=== PATIENT | female | born 1970 | race Caucasian/White ===

== ENCOUNTER 2017-06-26 13:26 | Emergency (ER) | payer BC ==
[~2017-06-26] VITALS: Ht 157.5 cm; Wt 90.7 kg
[2017-06-26] MEDS ORDERED: PAROXETINE HCL10 MG PO (13:35)
--- NOTE | 2017-06-26 15:01 | EKG ---
[facility] [address] [facility] [place], [place] [address] Signed Normal sinus rhythm Normal ECG No previous ECGs available Confirmed by CHIDI HEATON MD ([id number]) on 06/26/2017 3:01:42 PM Electronically Signed By: CHIDI HEATON MD 06/26/17 1501 PATIENT NAME: LALO BRITT NEERU Electrocardiogram DATE OF : [birth year] PHYSICIAN: CHIDI HEATON MD REPORT #: [id number] REPORT IS CONFIDENTIAL AND NOT TO BE RELEASED WITHOUT AUTHORIZATION
[2017-09-10] MEDS ORDERED: VITAMIN B122500 MCG PO (16:52)
[2017-09-10] MEDS ORDERED: VITAMIN D32000 UNI1 PO (16:52)
== END 2017-06-26 17:15 | disposition home or self-care (01) ==
LOC: ED 13:26
DX: R07.89 Other chest pain (principal); Z88.0 Allergy status to penicillin; Z88.8 Allergy status to other drugs, medicaments and biological substances; Z79.899 Other long term (current) drug therapy
CPT/HCPCS: 36415; 71046; 80053; 84484; 85025; 93005; 93010; 99284

== ENCOUNTER 2017-09-12 05:45 | Day surgery (SDC) | payer BC ==
[~2017-09-12] VITALS: Ht 157.5 cm; Wt 96.6 kg
[~2017-09-12 05:45] MED LIST: PAROXETINE HCL10 MG PO; VITAMIN B122500 MCG PO; VITAMIN D32000 UNI1 PO
--- NOTE | 2017-09-12 10:19 | NUR ---
09/12/17 1019 Yissel Murrell PT C/O NEEDING TO VOID; CHRISTIANSON IS DRAINING; PAIN MED GIVEN
--- NOTE | 2017-09-12 10:41 | NUR ---
PT ARRIVES TO DS RM 5 WITH EYES CLOSED AND RESPIRATIONS UNLABORED. PT QUIETLY SNORING. PT PROVIDED ICED WATER AND CRACKERS. PT STATES THE URGE TO VOID AND IS MADE AWARE OF CHRISTIANSON CATHETER IN PLACE. CALL LIGHT AT PT LEFT SIDE. SCD'S IN PLACE.
--- NOTE | 2017-09-12 11:04 | NUR ---
SPOKE WITH DR SANTOS ABOUT DC'ING PT CHRISTIANSON CATHETER. VERBAL ORDER GIVEN AND DR SANTOS TO ENTER ORDERS ON COMPUTER. 8.5 MLS NS REMOVED FROM CATHETER BALLOON. PT TOLERATES CHRISTIANSON DC WELL AND IMMEDIATELY ASKS TO AMBULATE TO BR. RN ASSIST TO BR, PT AMBULATES WELL BUT STATES SHE FEELS "A LITTLE NAUSEATED." PT INSTRUCTED TO USE CALL LIGHT IF HELP IS NEEDED ONCE IN BR. BED LINENS CHANGED AND WARM BLANKETS PROVIDED. FAMILY IN ROOM AT BEDSIDE.
--- NOTE | 2017-09-12 11:16 | NUR ---
PT BACK IN BED WITH CALL LIGHT AT LEFT SIDE. PT VOIDS APPROX 50 MLS OF YELLOW URINE WITH BLOOD PRESENT. PT FEELS LIKE SHE NEEDS TO HAVE A BM AND HAS "PRESSURE." PT STATES SHE IS STILL NAUSEATED.
--- NOTE | 2017-09-12 11:37 | NUR ---
PT STATES SHE IS COLD. FATMATA HUGGER PLACED ON WARM. PT RESTING WITH EYES CLOSED, RR EVEN AND UNLABORED SATS 100% ON RA. BP TAKEN AGAIN 160/74. BLADDER SCANNED 78 MLS.
--- NOTE | 2017-09-12 12:44 | NUR ---
PT UP TO BR WITH RN ASSIST. PT ABLE TO VOID 150 MLS YELLOW CONCENTRATED URINE. PT STATING SHE "NEEDS TO HAVE BM." PT PROVIDED SOUP AND WARM BLANKET. FAMILY AT BEDSIDE. CALL LIGHT AT LEFT SIDE.
--- NOTE | 2017-09-12 13:49 | NUR ---
[id number]: PT TOLERATES SOUP WELL. PT AMBULATES HALLWAY WITH RN ASSIST. PT TO BR, ABLE TO VOID 100 MLS CONCENTRATED YELLOW URINE. PT RESTING IN BED WITH EYES CLOSED, EVEN UNBLABORED RR, QUIETLY SNORING. SISTER SITTING AT BEDSIDE WATCHING TV. CALL LIGHT REAMINS AT PT LEFT SIDE.
--- NOTE | 2017-09-12 14:00 | NUR ---
DR. SANTOS IN TO SEE PT. PT AND MD ARE IN AGREEANCE SHE WILL BE DC'D FROM DS UNIT WHEN PT FEELS READY.
--- NOTE | 2017-09-12 14:51 | NUR ---
PT RESTING IN BED-ALERT, ORIENTED AND SUPPORTED BY FAMILY. SHE SEEMED A LITTLE ANXIOUS, BUT SEEMED TO EASE A BIT I EXPLAINED PLAN TODAY. PT REQUESTED PRAYER, WILL FOLLOW NEEDED
[2017-09-12] MEDS ORDERED: NORCO 5-325 TA1 EACH PO (15:06)
[2017-09-12] MEDS ORDERED: IBUPROFEN800 MG PO (15:06)
--- NOTE | 2017-09-12 15:28 | NUR ---
PT STATES SHE HAS SOME PAIN AND WOULD LIKE ORAL PAIN MEDICATION PRIOR TO DC. PT PROVIDED PUDDING AND CRACKERS WITH PERCOCET MEDICATION. PT BP ELEVATED AT 167/78. MANUAL BP TAKEN ON LEFT ARM, 162/80.
--- NOTE | 2017-09-12 15:57 | NUR ---
DC INSTRUCTIONS GIVEN IN PRESENCE OF PT AND PT SISTERPAIGE. PT VERBALIZES AN UNDERSTANDING OF DC INSTRUCTIONS AND HAD NO QUESTIONS. PT DC VIA WHEELCHIAR FROM DS RM 5 WITH TATY FISHMAN AND SISTERPAIGE.
--- NOTE | 2017-10-08 10:49 | OR ---
[facility] [address] [place], [place] [address] Signed DATE OF OPERATION: 09/12/2017 SURGEON: Regulo Paez DO PREOPERATIVE DIAGNOSES: 1. Abnormal uterine bleeding. 2. Menstrual migraines. 3. Obesity. POSTOPERATIVE DIAGNOSES: 1. Abnormal uterine bleeding. 2. Menstrual migraines. 3. Obesity. 4. Fibroid uterus. PROCEDURES PERFORMED: 1. Total laparoscopic hysterectomy. 2. Bilateral salpingectomy. 3. Cystoscopy. MARKETING RESEARCH INTERN: Dileep Wynn MD ANESTHESIA: General. ESTIMATED BLOOD LOSS: 50 mL. SPECIMENS: Uterus, tubes, cervix and Filshie clip from the broad ligament on the left. FINDINGS: Normal external genitalia with normal clitoris, urethral meatus, bilateral [place]'s, and Bartholin's. Her cervix is normal appearing. The uterus sounded to 8 cm. On laparoscopy, normal bilateral ovaries. The tubes bilaterally are status post tubal ligation and in the posterior leaf of the left broad ligament, there is a Filshie clip noted. At the end of procedure, the vaginal cuff was well supported hemostatic. In the right upper quadrant, she has significant scarring where she had an open cholecystectomy in the past. The rest of the abdomen is free of adhesions. On cystoscopy, normal Electronically Signed By: REGULO PAEZ DO 10/08/17 1049 PATIENT NAME: LALO IGLESIAS NEERU OPERATIVE REPORT DATE OF : 68 REPORT #: [id number] PHYSICIAN: REGULO PAEZ DO PCP: MISYS COSBY REPORT IS CONFIDENTIAL AND NOT TO BE RELEASED WITHOUT AUTHORIZATION [facility] [address] [place], [place] [address] Signed bladder with bilateral ureteral jets noted. COMPLICATIONS: None. INDICATIONS: Ms. Iglesias is a pleasant 47-year-old white female with a history of abnormal uterine bleeding and menstrual migraines. She has failed conservative management and requesting definitive treatment with total laparoscopic hysterectomy. Risks, benefits, alternatives were discussed in detail with the patient. The patient understands and wishes to proceed with the procedure. TECHNIQUE: The patient was taken to the operating room. A time-out was performed to confirm correct patient and correct procedure. General anesthesia was adequately established. The patient was prepped and draped in the dorsal lithotomy position with her feet in Yellofin stirrups. ICPs were on and running, and the patient received Ancef 2 g per SCIP protocol. No heparin was indicated. A weighted speculum was placed in the vagina and the anterior lip of the cervix was grasped with a single-tooth tenaculum. The uterus was sounded to a depth of 8 cm and the cervix was serially dilated using Hegar dilators. A VCare uterine manipulator was placed. A Baumann catheter was inserted. The surgeon's gloves were changed and attention was turned to the abdomen. The base of the umbilicus was infiltrated with 0.25% Marcaine with epinephrine. A 5 mm incision was made at the base of the umbilicus and a 5 mm trocar was placed under direct visualization without complication. Survey of the abdomen and pelvis was performed with the above findings noted. A second 5 mm trocar was placed in the left lower quadrant and an 8 mm expanding port was placed in the right lower quadrant, both under direct visualization without complication. The laparoscope was placed through the left lower quadrant port and no bowel injury was noted at the umbilicus. The left fallopian tube was grasped at the fimbriated end, elevated and the tube dissected along the mesial salpinx using the LigaSure bipolar device. The entire tube was removed and dissected at the corneum and removed through the 8 mm trocar. The utero-ovarian ligament on the left was fulgurated and divided with good hemostasis. The round ligament was fulgurated and divided using the LigaSure device as well. The anterior leaf of the broad ligament was then divided using LigaSure down just superior to the cervical cup. The bladder was pushed down well below the cup and attention was turned to the posterior leaf of the broad ligament. This was divided towards the uterosacral ligament after the ureter was identified and found to be well away from the space. The left uterine artery was identified, fulgurated, and divided with good hemostasis. The process was repeated on the right side with the fimbriated end of the fallopian tube, elevated, divided along the mesosalpinx and the fallopian tube removed. Utero-ovarian ligament was fulgurated and divided with good hemostasis. The round ligament was fulgurated and divided. The Electronically Signed By: REGULO PAEZ DO 10/08/17 1049 PATIENT NAME: LALO IGLESIAS NEERU OPERATIVE REPORT DATE OF : 68 REPORT #: [id number] PHYSICIAN: REGULO PAEZ DO PCP: MISSY COSBY REPORT IS CONFIDENTIAL AND NOT TO BE RELEASED WITHOUT AUTHORIZATION [facility] [address] [place] [id number] Signed leaves of the broad ligament were divided and dissection was completed to the anterior dissection and the bladder completely dissected well below the vaginal cuff. The right uterine artery was identified, fulgurated, and divided with good hemostasis. The Sonicision device was then used to perform colpotomy starting at the 6 o'clock position and carried circumferentially around until the cervix had been divided from the vagina. The uterus and cervix were then delivered through the vagina. There previously had been noted at the beginning of the case, a small fundal fibroid, of note. The cervix and uterus were sent to pathology for further evaluation. Lap sponge was placed in a surgical glove and inserted to the vagina to maintain pneumoperitoneum. The gloves were changed and attention was turned to the colpotomy closure. The uterosacral ligament was grasped on the right, elevated, and a V-Loc suture was placed through the uterosacral ligament, incorporating the vaginal epithelium. The colpotomy was then closed in running nonlocked sutures of the V-Loc suture to the left uterosacral ligament and then the suture was run back towards the midline for several bites with good hemostasis and cuff support. The pelvis was irrigated and found to be hemostatic. The attention was then turned to the left broad ligament where the previously noted Filshie clip had been retroperitonealized. This was grasped with a wavy grasper, elevated and the underlying peritoneum was gently dissected off using surgical mark. The Filshie clip was dissected easily and was removed through the 8 mm trocar. Good hemostasis was appreciated and the pelvis was again irrigated. Pneumoperitoneum was slowly reduced and good hemostasis was appreciated and the trocars were removed. Trocar sites were repaired using 4-0 Vicryl in a subcuticular stitch. Attention was then turned to cystoscopy. The bladder was instilled with approximately 250 mL of normal saline. A cystoscope was placed into the urethral meatus and advanced under direct visualization to the bladder. Normal bladder dome was noted and bilateral ureteral jets were noted. The bladder was drained. Baumann catheter was reinserted and the patient was taken to the PACU in good and stable condition. Sponge, needle, and instrument count were correct x2 at the end of the procedure. Dr. Wynn was present and participated in all portions of procedure. Regulo Paez DO JDW/MODL /[id number] Electronically Signed By: REGULO PAEZ DO 10/08/17 1049 PATIENT NAME: LALO IGLESIAS NEERU OPERATIVE REPORT DATE OF : [birth year] REPORT #: [id number] PHYSICIAN: REGULO PAEZ DO PCP: MISSY COSBY REPORT IS CONFIDENTIAL AND NOT TO BE RELEASED WITHOUT AUTHORIZATION [facility] [address] [place] [id number] Signed Copies: ~ Electronically Signed By: REGULO PAEZ DO 10/08/17 1049 PATIENT NAME: LALO IGLESIAS OPERATIVE REPORT DATE OF : 68 REPORT #: [id number] PHYSICIAN: REGULO PAEZ DO PCP: MISSY COSBY REPORT IS CONFIDENTIAL AND NOT TO BE RELEASED WITHOUT AUTHORIZATION
== END 2017-09-12 15:50 | disposition home or self-care (01) ==
LOC: OPS 05:45 → DS 05:45 → OPS 06:45
PROVIDERS: Obstetrics & Gynecology
PROC: 0UT94ZZ Resection of Uterus, Percutaneous Endoscopic Approach (ICD-10-PCS; principal; 2017-09-12 06:45)
PROC: 0UT74ZZ Resection of Bilateral Fallopian Tubes, Percutaneous Endoscopic Approach (ICD-10-PCS; 2017-09-12 06:45)
DX: D25.1 Intramural leiomyoma of uterus (principal); D25.2 Subserosal leiomyoma of uterus; N87.9 Dysplasia of cervix uteri, unspecified; E66.9 Obesity, unspecified; G43.829 Menstrual migraine, not intractable, without status migrainosus; G47.33 Obstructive sleep apnea (adult) (pediatric); F32.9 Major depressive disorder, single episode, unspecified; Z79.899 Other long term (current) drug therapy; Z68.38 Body mass index [BMI] 38.0-38.9, adult
CPT/HCPCS: 00944; 36415; 86850; 86900; 86901; J0330; J0690; J1100; J1885; J2250; J2405; J2704; J2765; J3010; J7120

== ENCOUNTER 2019-10-20 10:35 | Day surgery (SDC) | payer BC ==
[~2019-10-20] VITALS: Ht 157.5 cm; Wt 90.7 kg
--- NOTE | ~2019-10-20 | OR ---
[facility] [address] [place], [place] [address] Draft DATE OF OPERATION: 10/20/2019 SURGEON: Enrique Betancourt MD PREOPERATIVE DIAGNOSES: 1. Colon screening. 2. Family history of colon cancer (mother). POSTOPERATIVE DIAGNOSIS: Normal colon to cecum with normal ileum. PROCEDURE: Total colonoscopy to cecum with intubation of ileum. ANESTHESIA: Intravenous sedation, fentanyl 100 mcg and Versed 5 mg. INDICATIONS: This 49-year-old white woman is a patient of VALENTINE Weir. She is referred for screening colonoscopy. She has no symptoms of bleeding, diarrhea, or constipation, but does have family history of colon cancer in her mother. She is admitted at this time to undergo colonoscopy and understands the risks of bleeding, infection, and perforation. FINDINGS: The prep was excellent. Complete colonoscopy was undertaken to the cecum with ease identification of the ileocecal valve and appendix. The ileum was intubated without problem as well, and it was also normal. There were no signs of polyps, diverticular formation, colitis, or cancer. DESCRIPTION OF PROCEDURE: The patient was brought to the endoscopy suite and placed in lateral decubitus position, given intravenous sedation to the point of slurred speech and nystagmus. Digital rectal examination was normal. An Olympus video colonoscope was passed into the rectum and manipulated throughout the colon, ultimately intubating the cecum. The ileocecal valve and appendiceal orifice were normal. With manipulation, ileum was able to be intubated, identifying well the ileum mucosa which was normal. The scope was withdrawn and examination of the ileocecal valve and appendiceal orifice once again noted. Careful withdrawal of scope and withdrawal showed no sign of polyps, diverticular formation, colitis, or cancer. PATIENT NAME: LALO BRITT OPERATIVE REPORT DATE OF : [birth year] REPORT #: [id number] PHYSICIAN: ENRIQUE BETANCOURT MD PCP: MISSY HOWELL PA-C REPORT IS CONFIDENTIAL AND NOT TO BE RELEASED WITHOUT AUTHORIZATION [facility] [address] [place], [place] [address] Draft Retroflexed view was normal as well. The scope was removed. The patient taken to the recovery room in good condition. CONCLUDING DIAGNOSIS: Normal colon and ileum. PLAN: Recommend repeat colonoscopy in 5 years given her family history of colon cancer in her mother, sooner if clinically indicated. She will return to the ongoing care of Missy Howell otherwise. MD MATHIEU Grayson/MODL /[id number] Copies: ~ PATIENT NAME: LALO BRITT NEERU OPERATIVE REPORT DATE OF : [birth year] REPORT #: [id number] PHYSICIAN: ENRIQUE BETANCOURT MD PCP: MISSY HOWELL PA-C REPORT IS CONFIDENTIAL AND NOT TO BE RELEASED WITHOUT AUTHORIZATION
[~2019-10-20 10:35] MED LIST changes: +IBUPROFEN800 MG PO; +NORCO 5-325 TA1 EACH PO
--- NOTE | 2019-10-20 12:33 | NUR ---
10/20/19 1233 Sheets,Mariela 1228 PT ARRIVED TO PACU ON 2L VIA MASK, RESP EVEN AND UNOLABORED. PT DENIES PAIN AND NAUSEA. PT PASSING GAS AND ENCOURAGED TO DO SO. VSS. 1233 PT ASLEEP AND SNORING NOTED.
== END 2019-10-20 13:20 | disposition home or self-care (01) ==
LOC: OPS 10:35 → DS 11:00 → OPS 12:00
PROVIDERS: Surgery
PROC: 0DJD8ZZ Inspection of Lower Intestinal Tract, Via Natural or Artificial Opening Endoscopic (ICD-10-PCS; principal; 2019-10-20 12:00)
DX: Z12.11 Encounter for screening for malignant neoplasm of colon (principal); Z80.0 Family history of malignant neoplasm of digestive organs; Z88.0 Allergy status to penicillin; Z88.8 Allergy status to other drugs, medicaments and biological substances; Z90.49 Acquired absence of other specified parts of digestive tract
CPT/HCPCS: 99153; G0500; J2250; J3010; J7121

== ENCOUNTER 2021-12-29 14:46 | Emergency (ER) | payer BC ==
[~2021-12-29] VITALS: Ht 157.5 cm; Wt 95.2 kg
--- NOTE | 2021-12-31 16:20 | EKG ---
[facility] [address] [facility] [place] [address] Signed Normal sinus rhythm Nonspecific ST and T wave abnormality Abnormal ECG When compared with ECG of 26-JUN-2017 13:29, Nonspecific T wave abnormality, worse in Inferior leads Nonspecific T wave abnormality now evident in Anterolateral leads Confirmed by LEN AMBROSIO MD ([id number]) on 12/31/2021 4:20:03 PM Electronically Signed By: LEN AMBROSIO MD 12/31/21 1620 PATIENT NAME: AIMEE BRITTIDI NEERU Electrocardiogram DATE OF : 68 PHYSICIAN: LEN AMBROSIO MD REPORT #: [id number] REPORT IS CONFIDENTIAL AND NOT TO BE RELEASED WITHOUT AUTHORIZATION
== END 2021-12-29 16:22 | disposition home or self-care (01) ==
LOC: ED 14:46
DX: K21.9 Gastro-esophageal reflux disease without esophagitis (principal); Z88.0 Allergy status to penicillin; Z88.8 Allergy status to other drugs, medicaments and biological substances
CPT/HCPCS: 36415; 71045; 80053; 84484; 85025; 93005; 93010; 99285-25

== ENCOUNTER 2024-03-08 15:23 | Emergency (ER) | payer OTHER, BC ==
[~2024-03-08] VITALS: Ht 157.5 cm; Wt 93.0 kg
[2024-03-08] MEDS ORDERED: MOUNJARO5 MG/0.5 M SQ (16:07)
[2024-03-08] MEDS ORDERED: PHENTERMINE HCL15 MG PO (16:07)
[2024-03-08] MEDS ORDERED: OXYCODONE/APAP 5/325 TAB PO ONE (16:15)
[2024-03-08 17:26] VITALS: BP 189/101
== END 2024-03-08 17:34 | disposition home or self-care (01) ==
LOC: ED 15:23
DX: M25.531 Pain in right wrist (principal); E11.9 Type 2 diabetes mellitus without complications; Z88.5 Allergy status to narcotic agent; Z88.0 Allergy status to penicillin; Z79.899 Other long term (current) drug therapy; W01.0XXA Fall on same level from slipping, tripping and stumbling without subsequent striking against object, initial encounter
CPT/HCPCS: 73110; 73130; 99283

== ENCOUNTER 2024-08-05 20:20 | Emergency (ER) | payer BC ==
[~2024-08-05] VITALS: Ht 157.5 cm; Wt 90.0 kg
[~2024-08-05 20:20] MED LIST changes: +MOUNJARO5 MG/0.5 M SQ; +PHENTERMINE HCL15 MG PO
[2024-08-05] MEDS ORDERED: LOSARTAN POTASS25 MG PO (21:06)
[2024-08-05] MEDS ORDERED: HYDROXYZINE HCL25 MG (21:07)
[2024-08-05 21:20] LABS: EOSINOPHILS 2.1 % (0-6); HEMOGLOBIN 14.5 g/dL (12.0-18.0); LYMPHOCYTES 34.3 % (24-44); MCH 30.7 (27-36); MCHC 34.6 g/dl (30-36); MCV 88.5 fl (81-99); MONOCYTES 4.7 % (0-12); NEUTROPHILS 57.9 % (39-80); PLATELET COUNT 340 K/uL (140-440); RBC 4.74 M/ul (4.3-5.7); RDW 13.1 (10.5-15.0)
[2024-08-05 21:27] LABS: BILIRUBIN, URINE NEGATIVE (negative); BLOOD/HGB, URINE NEGATIVE (Negative); KETONE, URINE NEGATIVE (Negative); LEUK ESTERASE, URINE NEGATIVE (negative); NITRITE, URINE NEGATIVE (negative)
[2024-08-05 21:31] LABS: ALBUMIN 4.3 g/dL (3.4-5.0); ALBUMIN/GLOBULIN RATIO 1.05 (1.1-2.4); ANION GAP 8.6 (7-21); BILIRUBIN, TOTAL 0.3 mg/dL (0.2-1.0); BUN/CREATININE RATIO 19.35 (6.0-28.6); CALCIUM 9.5 mg/dL (8.5-10.1); CREATININE, SERUM 0.93 mg/dL (0.55-1.02); POTASSIUM 3.6 mmol/L (3.5-5.1); PROTEIN, TOTAL 8.4 g/dL (6.4-8.2)
[2024-08-05] MEDS ORDERED: ENALAPRILAT DIHYDRATE 1.25 MG/ML VIAL IV ONE (22:00)
[2024-08-05] MEDS ORDERED: LORazepam 2 MG/ML VIAL IV ONE (22:30)
[2024-08-05] MEDS ORDERED: LOSARTAN POTASS50 MG PO (23:32)
[2024-08-05] MEDS ORDERED: LORazepam 1 MG HOME.PACK PO ONE (23:45)
[2024-08-05 23:51] VITALS: BP 148/72
--- NOTE | 2024-08-06 22:45 | EKG ---
[facility] [address] [place] [address] Signed Sinus rhythm with premature supraventricular complexes Moderate voltage criteria for LVH, may be normal variant ( R in aVL , Cecil product ) Nonspecific T wave abnormality Abnormal ECG When compared with ECG of 29-DEC-2021 14:47, premature supraventricular complexes are now present Confirmed by Sandor Gtz MD () on 08/06/2024 10:44:55 PM Electronically Signed By: SANDOR GTZ MD 08/06/24 2245 PATIENT NAME: LALO BRITT NEERU Electrocardiogram DATE OF : 68 PHYSICIAN: SANDOR GTZ MD REPORT #: [id number] REPORT IS CONFIDENTIAL AND NOT TO BE RELEASED WITHOUT AUTHORIZATION
== END 2024-08-05 23:52 | disposition home or self-care (01) ==
LOC: ED 20:20
PROVIDERS: Family Medicine
DX: I10 Essential (primary) hypertension (principal); R42 Dizziness and giddiness; F43.9 Reaction to severe stress, unspecified; E11.9 Type 2 diabetes mellitus without complications; Z79.899 Other long term (current) drug therapy; Z88.0 Allergy status to penicillin; Z88.8 Allergy status to other drugs, medicaments and biological substances
CPT/HCPCS: 36415; 70450; 80053; 81003; 84484; 85025; 93005; 93010; 96374; 96375; 99284-25; J2060